=== PATIENT | female | born 1995 | race Caucasian/White ===

== ENCOUNTER 2018-10-11 13:18 | Emergency (ER) | payer MEDICAID ==
[~2018-10-11] VITALS: Ht 167.6 cm; Wt 125.4 kg
[2018-10-11 13:25] VITALS: BP 146/94
--- NOTE | 2018-10-11 13:29 | NUR ---
PT AMBULATED TO LOBBY AT THIS TIME WITH VSS.
--- NOTE | 2018-10-11 16:05 | NUR ---
PT AMBULATED TO BED 12
--- NOTE | 2018-10-11 16:38 | NUR ---
PT TO ED FOR C/O LOWER BACK PAIN X 2 DAYS. DENIES INJURY/TRAUMA. REPORTING PAIN UPON MOVEMENT. PT PLACED INTO BED PENDING MD ADAN.
[2018-10-11] MEDS ORDERED: KETOROLAC 30 MG/ML VIAL IM ONE (17:05)
[2018-10-11 18:29] VITALS: BP 138/84
== END 2018-10-11 18:29 | disposition home or self-care (01) ==
LOC: MED 13:18
DX: M54.5 Low back pain (principal)
CPT/HCPCS: 81002; 81025; 96372; 99283; J1885

== ENCOUNTER 2019-08-12 22:59 | Emergency (ER) | payer MEDICAID ==
[~2019-08-12] VITALS: Ht 170.2 cm; Wt 125.2 kg
[2019-08-12 23:06] VITALS: BP 140/92
--- NOTE | 2019-08-12 23:10 | NUR ---
PT AMBULATED TO BED #5
--- NOTE | 2019-08-12 23:25 | NUR ---
Dr. Jaime examining patient.
--- NOTE | 2019-08-12 23:30 | NUR ---
PT PLACED ON CARDIAC MONITORING.
--- NOTE | 2019-08-12 23:33 | NUR ---
LABS DRAWN AND SENT TO LAB.
--- NOTE | 2019-08-12 23:45 | NUR ---
XRAY AT BEDSIDE.
[2019-08-12 23:49] LABS: BASOPHILS % (AUTO) 0.4 % (0.0-2.0); EOSINOPHILS # (AUTO) 0.1 K/uL (0-0.4); EOSINOPHILS % (AUTO) 1.1 % (0.0-4.0); HEMATOCRIT 34.5 % (36-48); HEMOGLOBIN 11.6 g/dL (12.0-16.0); LYMPHOCYTES # (AUTO) 3.5 K/uL (2.5-16.5); LYMPHOCYTES % (AUTO) 43.8 % (20.5-51.1); MEAN CORPUSCULAR HEMOGLOBIN 29 pg (27-31); MEAN CORPUSCULAR HGB CONC 34 g/dL (33-37); MEAN CORPUSCULAR VOLUME 86.9 fL (80-94); MONOCYTES # (AUTO) 0.6 K/uL (0.8-1.0); MONOCYTES % (AUTO) 6.9 % (1.7-9.3); NEUTROPHILS # (AUTO) 3.9 K/uL (1.8-7.7); NEUTROPHILS % (AUTO) 47.8 % (42.2-75.2); PLATELET COUNT (AUTO) 444 K/uL (140-450); RED BLOOD CELL COUNT(AUTO) 3.97 MIL/uL (4.20-5.40); RED CELL DISTRIBUTION WIDTH 12.5 % (11.6-13.7); WHITE BLOOD COUNT (AUTO) 8.1 K/uL (4.8-10.8)
--- NOTE | 2019-08-12 23:53 | NUR ---
23F PT PRESENTS TO ED WITH C/O INTERMITTENT PLEURITIC CHEST PAIN THAT RADIATING TO UPPER BACK. PT DENIES SOB/COUGH. UPON ASSESSMENT, PT A/O X4, GCS 15.DENIES HEADACHE/BLURRY VISION PERRLA. CBL SOUNDS. RR EVEN AND UNLABORED. ABDOMEN SOFT AND NONTENDER. NORMOACTIVE BOWEL SOUNDS ON ALL QUADRANTS. DENIES N/V/D. PT IS AMBULATORY WITH STEADY GAIT. PMHX: DENIES RX: DENIES NKA NEGATIVE FOR COVID SCREENING. WEARING MASK .
[2019-08-12 23:55] VITALS: BP 140/92
[2019-08-13 00:10] LABS: ALBUMIN 3.3 g/dL (3.4-5.0); CARBON DIOXIDE 26.3 mmol/L (21-32); CREATININE 0.9 mg/dL (0.6-1.3); POTASSIUM 3.3 mmol/L (3.5-5.1); TOTAL BILIRUBIN 0.2 mg/dL (0.0-1.0)
--- NOTE | 2019-08-13 00:17 | NUR ---
PT AMBULATED TO RESTROOM WITH STEADY GAIT TO PROVIDE URINE SAMPLE
--- NOTE | 2019-08-13 01:19 | NUR ---
Patient discharged with v/s stable. Written and verbal after care instructions given and explained. Patient verbalized understanding. Ambulatory with steady gait. All questions addressed prior to discharge. Advised to follow up with PMD.
== END 2019-08-13 01:19 | disposition home or self-care (01) ==
LOC: MED 22:59
DX: R07.89 Other chest pain (principal)
CPT/HCPCS: 36415; 71045; 80053; 81002; 81025; 84484; 85025; 93005; 99285; Q0092